=== PATIENT | male | born 1990 | race Caucasian/White ===

== ENCOUNTER 2019-02-22 13:07 | Emergency (ER) | payer MEDICAID, OTHER ==
[~2019-02-22] VITALS: Ht 170.2 cm; Wt 83.9 kg
[2019-02-22 13:12] VITALS: BP 119/96
--- NOTE | 2019-02-22 13:22 | NUR ---
28/M BIB MOTHER C/O RT KNEE PAIN X2 DAYS. DENIES TRUAMA, REPORTS LOTS OF WALKING AND REPEDATIVE MOTION AT WORK. PATIENT STATES PAIN OF 10/10 AT THIS TIME. PATIENT POSITIONED FOR COMFORT; HOB ELEVATED; BEDRAILS UP X1; BED DOWN. ER MD MADE AWARE OF PT STATUS.
[2019-02-22] MEDS ORDERED: IBUPROFEN 800 MG TAB PO ONE (13:50)
[2019-02-22 14:03] VITALS: BP 122/88
--- NOTE | 2019-02-22 14:03 | NUR ---
Patient discharged with v/s stable. Written and verbal after care instructions given and explained. Patient alert, oriented and verbalized understanding of instructions. Wheel Chair AssisteD TO LOBBY TO WAIT FOR RIDE. All questions addressed prior to discharge. ID band removed. Patient advised to follow up with PMD. Rx of IBUPROFEN given. Patient educated on indication of medication including possible reaction and side effects. Opportunity to ask questions provided and answered.
== END 2019-02-22 14:03 | disposition home or self-care (01) ==
LOC: MED 13:07
DX: S86.811A Strain of other muscle(s) and tendon(s) at lower leg level, right leg, initial encounter (principal); Z88.0 Allergy status to penicillin; X58.XXXA Exposure to other specified factors, initial encounter; Y93.89 Activity, other specified; Y92.89 Other specified places as the place of occurrence of the external cause; Y99.0 Civilian activity done for income or pay
CPT/HCPCS: 99283